=== PATIENT | male | born 1985 | race Caucasian/White ===

== ENCOUNTER 2021-12-09 09:13 | Emergency (ER) | payer SELFPAY ==
[~2021-12-09] VITALS: Ht 180.3 cm; Wt 70.3 kg
[2021-12-09 09:20] VITALS: BP 151/92
[2021-12-09] MEDS ORDERED: FLUORESCEIN (FLUOR-I-STRIPS) 1 MG STRP OU ONE (10:15)
[2021-12-09] MEDS ORDERED: TROPICAMIDE 1% OPH SOLN (MYDRIACYL) 3 ML BTL OU ONE (10:15)
[2021-12-09] MEDS ORDERED: BSS 15 ML IR ONE (10:15)
[2021-12-09] MEDS ORDERED: TETRACAINE 0.5% OPHTH SOLN 4 ML BTL (SINGLE DOSE ONLY) OU ONE (10:15)
--- NOTE | 2021-12-09 11:58 | ED EENT ---
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 He does not believe there is any debris or spark burning to the eyes. Allergies and Home Medications Allergies Coded Allergies: No Known Drug Allergies (Unverified , 12/09/21) Patient Home Medication List Home Medication List Reviewed: Yes Hydrocodone/Acetaminophen (Hydrocodone-Acetamin 5-325 mg) 5 Mg-325 Mg Tablet, 1 TAB PO Q4H PRN for PAIN-SEVERE (8-10) Prescribed by: JAYCEE GHOSH on 12/09/21 190 Review of Systems Review of Systems Constitutional: no symptoms reported Eyes: See HPI Ears: No Symptoms Reported Nose: no symptoms reported Mouth: no symptoms reported Throat: no symptoms reported Respiratory: no symptoms reported Cardiovascular: no symptoms reported Gastrointestinal: no symptoms reported Musculoskeletal: no symptoms reported Skin: no symptoms reported Neurological: Other (Irritable) Hematologic/Lymphatic: No Symptoms Reported Immunological/Allergic: no symptoms reported Past Cxifcrg-Kxtffy-Vkdyat Hx Patient Social History Tobacco Use?: No Use of E-Cig and/or Vaping dev: No Substance use?: No Alcohol Use?: No Pt feels they are or have been: No Physical Exam Vital Signs Vital Signs - First Documented 12/09/21 09:20 Temp 36.0 Pulse 82 Resp 18 B/P (MAP) 151/92 (111) Pulse Ox 99 Height, Weight, BMI Height: '" Weight: lbs. oz. kg; 21.00 BMI Method: General Appearance: WD/WN, mild distress Eyes: bilateral eye other (Eyes watering and irritated bilaterally with slight conjunctival swelling) Neurologic/Psychiatric: no motor/sensory deficits, alert, oriented x 3, other (Moderately irritable) Skin: normal color, warm/dry Progress/Results/Core Measures Results/Orders My Orders Orders - YAW CRAFT MD Tropicamide 1% Ophthalmic Soln (Mydriacy (12/09/21 10:15) Tetracaine 0.5% Ophth Christine Sdv (Tetracai (12/09/21 10:15) Fluorescein Strips (Clkul-Y-Yijdbo) (12/09/21 10:15) Balanced Salt Irrigation Soln (Bss Irrig (12/09/21 10:15) Medications Given in ED Vital Signs/I&O Blood Pressure Mean: 111 Progress Progress Note #1: Time: 11:55 Progress Note Patient's eyes were anesthetized with tetracaine. The tropicamide was not available in the ER. While awaiting receipt of the medication from the pharmacy to finish the patient's exam and treatment, he became agitated with his wait. He walked out without completing his evaluation or care. Case was discussed with Dr. Ortiz who had made recommendations for evaluation and treatment. Progress Note #2: Progress Note Patient later presented to the [place] emergency department and information was communicated to Dr. Ghosh to maximize care. Departure Impression Primary Impression: Exposure to welding light Qualified Codes: W89.0XXA - Exposure to welding light (arc), initial encounter Additional Impressions: Pain of both eyes Left against medical advice Disposition: 07 AGAINST MEDICAL ADVICE Condition: Against Medical Advice Departure-Patient Inst. Referrals: NO,LOCAL PHYSICIAN (PCP) Primary Care Physician YAW CRAFT MD December 09, 2021 11:58
[2021-12-09] MEDS ORDERED: ACHD5005 PO (19:01)
== END 2021-12-09 11:45 | disposition left against medical advice (07) ==
LOC: ER 09:16
DX: H57.13 Ocular pain, bilateral (principal); H57.89 Other specified disorders of eye and adnexa; W89.0XXA Exposure to welding light (arc), initial encounter
CPT/HCPCS: 99281

== ENCOUNTER 2021-12-09 17:16 | Emergency (ER) | payer SELFPAY ==
[~2021-12-09] VITALS: Ht 183 cm; Wt 68.0 kg
[2021-12-09] MEDS ORDERED: BSS 15 ML IR ONE (17:45)
[2021-12-09] MEDS ORDERED: TETRACAINE 0.5% OPHTH SOLN 4 ML BTL (SINGLE DOSE ONLY) OU ONE (17:45)
[2021-12-09] MEDS ORDERED: TROPICAMIDE 1% OPH SOLN (MYDRIACYL) 15 ML BTL OU ONE (17:45)
[2021-12-09] MEDS ORDERED: FLUORESCEIN (FLUOR-I-STRIPS) 1 MG STRP OU ONE (17:45)
[2021-12-09 17:46] VITALS: BP 142/88
[2021-12-09] MEDS ORDERED: PREDNISOLONE 1% OP STA (18:53)
[2021-12-09] MEDS ORDERED: OPTH OP STA (18:53)
--- NOTE | 2021-12-09 19:00 | ED EENT ---
History of Present Illness General Chief Complaint: Eye Problems Stated Complaint: EYE MORATAYA Nursing Triage Note: Patient has ambulated to ER with cc of burning and pain in his eyes. 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 He woke up this morning with severe pain and redness to his eyes. He has taken ibuprofen this morning and use and over the counter eye drop. He did go to the [facility] this morning but he left after waiting awhile. He reports that they did not do anything for him and he left the ER about noon today. He came to ER this evening for evaluation. He frequently swears during his conversation. Source: patient History of Present Illness Date Seen by Provider: December 09, 2021 Time Seen by Provider: 18:31 Initial Comments 36-year-old male presenting with burning and pain to both eyes. 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 He had been at [facility] this morning but left when it was taking a while for pharmacy to get a dilating drop. He tried things at home but was still having pain so he came to the emergency department here in [place] this evening. He feels like he has a sunburn to his face in addition to the burning on his eyes. He states it feels like there is sandpaper in his eyes. Timing/Duration: gradual Severity: severe Location: eye (R), eye (L) Prearrival Treatment: over the counter meds Modifying Factors: Worse With Other (Bright lights) Associated Symptoms: No change in hearing, No cough, No drooling, No ear drainage; facial pain/swelling (Feels like he has a sunburn on his face); No fever, No malaise, No nasal congestion/drainage, No poor fluid intake, No poor solids intake, No sinus infection, No sore throat, No tooth pain, No voice change Allergies and Home Medications Allergies Coded Allergies: No Known Drug Allergies (Unverified , 12/09/21) Patient Home Medication List Home Medication List Reviewed: Yes Hydrocodone/Acetaminophen (Hydrocodone-Acetamin 5-325 mg) 5 Mg-325 Mg Tablet, 1 TAB PO Q4H PRN for PAIN-SEVERE (8-10) Prescribed by: JAYCEE SALCEDO on 12/09/21 190 Review of Systems Review of Systems Constitutional: No chills, No fever Eyes: See HPI, Blurred Vision, Pain, Photophobia Ears: No Symptoms Reported Nose: no symptoms reported Mouth: no symptoms reported Throat: no symptoms reported Respiratory: no symptoms reported Cardiovascular: no symptoms reported Gastrointestinal: no symptoms reported Musculoskeletal: no symptoms reported Skin: see HPI Neurological: No Symptoms Reported Past Zzqwate-Giztsq-Pcsxom Hx Patient Social History Tobacco Use?: No Use of E-Cig and/or Vaping dev: No Substance use?: No Alcohol Use?: No Physical Exam Vital Signs Vital Signs - First Documented 12/09/21 17:46 Temp 37.5 Pulse 84 Resp 16 B/P (MAP) 142/88 (106) Pulse Ox 99 O2 Delivery Room Air Height, Weight, BMI Height: '" Weight: lbs. oz. kg; 20.00 BMI Method: General Appearance: moderate distress Eyes: bilateral eye PERRL, bilateral eye EOMI Neck: non-tender, full range of motion, supple, normal inspection Cardiovascular: normal peripheral pulses Neurologic/Psychiatric: alert, oriented x 3 Skin: warm/dry Procedures/Interventions Eye : Location: both eyes Anesthesia (gtts): Tetracaine Progress/Procedure Conclusion Administered tetracaine to bilateral eyes for anesthetic and then given a drop of tropicamide for a cycloplegic. Then Fluorescein administered and examined under black light with magnification. This showed no dye uptake so will start on Pred Forte and a few days of Hydrocodone for severe pain. Counseled on follow up and return precautions. Progress/Results/Core Measures Results/Orders My Orders Orders - JAYCEE SALCEDO MD Tropicamide 1% Ophth Soln (Mydriacyl 1% (12/09/21 17:45) Tetracaine 0.5% Ophth Christine Sdv (Tetracai (12/09/21 17:45) Fluorescein Strips (Qfyqs-A-Yninrl) (12/09/21 17:45) Balanced Salt Irrigation Soln (Bss Irrig (12/09/21 17:45) Rx-Prednisolone Acetate (Rx-Pred Forte 1 (12/09/21 18:53) Rx-Hydrocodone/Apap 5-325 Mg (Rx-Vicodin (12/09/21 19:15) Medications Given in ED Current Medications Medications Dose Ordered Sig/Eliud Route Start Time Stop Time Status Last Admin Dose Admin Balanced Salt Solution 15 ml ONCE ONCE IR 12/09/21 17:45 12/09/21 17:46 DC 12/09/21 18:52 15 ML Fluorescein Sodium 1 mg ONCE ONCE OU 12/09/21 17:45 12/09/21 17:46 DC 12/09/21 18:52 1 MG Tetracaine HCl 4 ml ONCE ONCE OU 12/09/21 17:45 12/09/21 17:46 DC 12/09/21 18:53 4 ML Tropicamide 15 ml ONCE ONCE OU 12/09/21 17:45 12/09/21 17:46 DC 12/09/21 18:52 15 ML Vital Signs/I&O 12/09/21 17:46 Temp 37.5 Pulse 84 Resp 16 B/P (MAP) 142/88 (106) Pulse Ox 99 O2 Delivery Room Air Blood Pressure Mean: 106 Progress Progress Note : Progress Note Dr. Mckenna called from [facility] to say that the patient had been seen there this am and the Eye doctor was wanting him to have exam with fluorescein and check for abrasions or uptake. If he had uptake then he should have combo of antibiotic and steroid drops such as tobradex. If he does not have uptake then he could have Pred Forte 1% with 1 drop QID for 5 days. Check Eye doctor for worsening symptoms or if not improving. Departure Impression Primary Impression: Welders' keratitis of both eyes Additional Impression: Exposure to welding light Qualified Codes: W89.0XXA - Exposure to welding light (arc), initial encounter Disposition: HOME, SELF-CARE Condition: Stable Departure-Patient Inst. Decision time for Depature: 18:55 Referrals: NO,LOCAL PHYSICIAN (PCP) Primary Care Physician Ophthalmmologist Patient Instructions: How to Use Eye Drops and Eye Ointment ED, Photokeratitis ([facility]) Add. Discharge Instructions: Use the steroid eye drops by placing 1 drop in each eye 4 times a day for next 5 days. May try resting in cool dark room and avoid bright lights If not improving or having worsening pain and problems then check with Eye Doctor for more formal exam and evaluation Use the pain medicine for severe pain and to help you rest in the first 2 days. All discharge instructions reviewed with patient and/or family. Voiced understanding. Scripts Hydrocodone/Acetaminophen (Hydrocodone-Acetamin 5-325 mg) 5 Mg-325 Mg Tablet 1 TAB PO Q4H PRN for PAIN-SEVERE (8-10) for 2 Days, #10 TAB 0 Refills Prov: JAYCEE SALCEDO MD 12/09/21 JAYCEE SALCEDO MD December 09, 2021 19:00
[2021-12-09] MEDS ORDERED: ACHD5005 PO (19:01)
== END 2021-12-09 19:08 | disposition home or self-care (01) ==
LOC: EDUNIT# 17:16 → ER FS 17:17
DX: T26.11XA Burn of cornea and conjunctival sac, right eye, initial encounter (principal); T26.12XA Burn of cornea and conjunctival sac, left eye, initial encounter; H16.133 Photokeratitis, bilateral; W89.0XXA Exposure to welding light (arc), initial encounter
CPT/HCPCS: 99285

== ENCOUNTER 2022-10-13 11:36 | Emergency (ER) | payer SELFPAY ==
[~2022-10-13] VITALS: Ht 182.8 cm; Wt 76.2 kg
[~2022-10-13 11:36] MED LIST: ACHD5005 PO
[2022-10-13] MEDS ORDERED: NS IV 1000 ML 1,000 ML IV STA (11:51)
[2022-10-13] MEDS ORDERED: ONDANSETRON 4 MG/2 ML (SDV) Z0FRAN IVP ONE (12:00)
[2022-10-13] MEDS ORDERED: ASPIRIN 81 MG CHEW (CHILDREN'S ASA) PO ONE (12:00)
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
[2022-10-13 12:06] LABS: BASOPHILS % (AUTO) 1 % (0-10); EOSINOPHILS # (AUTO) 0.2 10^3/uL (0.0-0.3); EOSINOPHILS % (AUTO) 3 % (0-10); HEMATOCRIT 45 % (40-54); HEMOGLOBIN 15.3 g/dL (13.3-17.7); LYMPHOCYTES % (AUTO) 32 % (12-44); MEAN CORPUSCULAR HEMOGLOBIN 32 pg (25-34); MEAN CORPUSCULAR HGB CONC 34 g/dL (32-36); MEAN CORPUSCULAR VOLUME 93 fL (80-99); MONOCYTES # (AUTO) 0.4 10^3/uL (0.0-1.0); MONOCYTES % (AUTO) 7 % (0-12); NEUTROPHILS # (AUTO) 3.6 10^3/uL (1.8-7.8); NEUTROPHILS % (AUTO) 58 % (42-75); PLATELET COUNT 255 10^3/uL (130-400); WHITE BLOOD COUNT 6.2 10^3/uL (4.3-11.0)
[2022-10-13] MEDS ORDERED: morphine INJ 10 MG/ML 1ML (SYR OR VIAL) IVP ONE (12:15)
[2022-10-13 12:16] LABS: ALBUMIN 4.7 GM/DL (3.2-4.5); CHLORIDE 106 MMOL/L (98-107); POTASSIUM 3.9 MMOL/L (3.6-5.0); SODIUM 141 MMOL/L (135-145)
[2022-10-13 12:17] LABS: CALCIUM 9.3 MG/DL (8.5-10.1)
[2022-10-13 12:18] LABS: GLUCOSE 105 MG/DL (70-105); PROTHROMBIN TIME PATIENT 13.6 SEC (12.2-14.7); TOTAL PROTEIN 8.2 GM/DL (6.4-8.2)
[2022-10-13 12:19] LABS: CARBON DIOXIDE 26 MMOL/L (21-32)
[2022-10-13 12:20] LABS: BILIRUBIN,TOTAL 0.8 MG/DL (0.1-1.0)
--- NOTE | 2022-10-13 12:21 | Diagnostic Imaging Report ---
INDICATION: Chest pain. Frontal chest obtained at 11:58 a.m. FINDINGS: Heart and mediastinal silhouette are normal in appearance. The lungs are clear. There is no pneumothorax or pleural fluid. IMPRESSION: Negative chest. Dictated by: Dictated on workstation # [id number]
[2022-10-13 12:22] LABS: ALKALINE PHOSPHATASE 63 U/L (40-136); CREATININE SERUM 1.04 MG/DL (0.60-1.30); GFR ESTIMATED 94
[2022-10-13 12:23] LABS: BUN/CREATININE RATIO 12
[2022-10-13 12:25] LABS: ALANINE AMINOTRANSFERASE 12 U/L (0-55); MAGNESIUM 1.9 MG/DL (1.6-2.4)
[2022-10-13 12:26] LABS: LIPASE 24 U/L (8-78)
[2022-10-13] MEDS ORDERED: HYDROcodone/APAP 5 MG/325 MG (LORTAB) TAB PO ONE (13:30)
[2022-10-13] MEDS ORDERED: SUMA25TA4 PO (15:41)
[2022-10-13 15:50] VITALS: BP 151/97
== END 2022-10-13 15:50 | disposition home or self-care (01) ==
LOC: EDUNIT# 11:36 → ER 11:39
DX: R07.89 Other chest pain (principal); G43.909 Migraine, unspecified, not intractable, without status migrainosus; R55 Syncope and collapse; R06.02 Shortness of breath; Z87.820 Personal history of traumatic brain injury
CPT/HCPCS: 36415; 71045; 80053; 83690; 83735; 83874; 83880; 84484; 85025; 85610; 85730; 93005; 93041